=== PATIENT | male | born 1985 | race Caucasian/White ===

== ENCOUNTER 2016-12-12 12:41 | Emergency (ER) | payer OTHER ==
--- NOTE | 2016-12-12 13:41 | DIAGNOSTIC IMAGING REPORT ---
PROCEDURE: XR CHEST 2 VIEW INDICATION: COUGH TECHNIQUE: PA and lateral view. COMPARISON: None. FINDINGS: Small left basilar infiltrate versus summation artifact. Cardiovascular structures are normal. Bony thorax is unremarkable. IMPRESSION: 1. Small left basilar infiltrate versus summation artifact.
--- NOTE | 2016-12-12 13:52 | ED ORDER SUMMARY ---
..... Patient: ROSALIE CROCKETT OrderSheet [facility] VisitID: [id number] [address] [place] [address] 31y, M Registration Date/Time: 12/12/2016 ORDER SHEET Weight: 95.2 kg (stated) Allergies: No Known Drug Allergy GENERAL ORDERS: Chest 1V Urgent (12:54 12/12/2016 JBoardley R.N. per protocol) (Ack 12:57 PWeiler ER Tech1) (Cancelled: Other12:59 EKoroleva P.A.-C) Pulse oximeter (12:55 12/12/2016 JBoardley R.N. per protocol) (12:55 JBoardley R.N.) RT Evaluation Stat (12:55 12/12/2016 JBoardley R.N. per protocol) (Ack 12:56 PWeiler ER Tech1) (12:57 JBoardley R.N.) Chest 2V Urgent (12:59 12/12/2016 EKoroleva P.A.-C) (Ack 13:00 PWeiler ER Tech1) (13:27 JBoardley R.N.) MEDICATION ORDERS: Albuterol Neb Tx 2.5 mg (NOW) (13:00 12/12/2016 EKoroleva P.A.-C) (Ack 13:02 JBoardley R.N.) (13:11 JBoardley R.N.) IV FLUIDS: ORDER SHEET NOTES: [Electronically signed by Natalio Richards R.N. (14:10 12/12/2016)] [Electronically signed by Ameena Sky.A.-C (14:12 12/12/2016)] [Electronically locked/signed by Natalio Richards R.N. (14:10 12/12/2016)]
--- NOTE | 2016-12-12 13:52 | ED CLINICAL REPORT ---
Clinical Report - Physicians/Mid Levels [facility] [address] [place] [place] [address] 12/12/2016 12:44 [id number] Time Seen: 14:11 Dec 12 2016. Arrived- By private vehicle. Historian- patient. HISTORY OF PRESENT ILLNESS Chief Complaint: COUGH, FEVER, CHILLS and MUSCLE ACHES. This started 3 days and is still present. The patient has had a cough, a sore throat and chills. No chest pain, nasal congestion or sinus pressure. Additional history - The patient has had contact with a sick individual. (Patient presents with chills, nonproductive cough over the last 3 days. Reports some degree of shortness of breath. Denies chest pain. Denies history of sick contacts. Denies any history of PE DVT, recent foreign travel or hemoptysis.). REVIEW OF SYSTEMS No headache, vomiting, diarrhea or pedal edema. All systems otherwise negative, except as recorded above. SOCIAL HISTORY Never smoker. Alcohol use. No drug use. ADDITIONAL NOTES The nursing notes have been reviewed. PHYSICAL EXAM Vital Signs: 12/12/2016 12:50 BP: 138/71. HR: 99. RR: 20. O2 saturation: 98%. Temp: 98.2 F. Pain level now: 5/10. Appearance: Alert. Eyes: Eyes normal inspection. ENT: Ears normal. Pharynx normal. Neck: Normal inspection. CVS: Normal heart rate and rhythm. Heart sounds normal. Respiratory: No respiratory distress. Expiratory mild wheezes in the left lung base posteriorly. Breath sounds normal. No retractions or decreased breath sounds. Abdomen: Soft. Skin: Skin warm. Normal skin color. Neuro: Oriented X 3. LABS, X-RAYS, AND EKG Chest X-ray: (IMPRESSION: 1. Small left basilar infiltrate versus summation artifact. Electronically Final signed by:Román Ramos MD 12/12/2016 1:40:49 PM). PROGRESS AND PROCEDURES Course of Care: Patient here in the emergency department with signs of mild wheezing, good set and no retractions. Afebrile. Signs of early pneumonia in the emergency department. Patient is very stable. PERC/ WELLS NEG. 12/12/2016 14:06 BP: 132/72. HR: 92. RR: 16. O2 saturation: 98%. Temp: 98.3 F. Pain level now: 2/10. Patient is stable. Patient/family counseled. Differential Diagnosis: I considered viral bronchitis, laryngotracheobronchitis, viral pneumonia, bacterial bronchitis, bacterial pneumonia, mycoplasmal bronchitis, bronchospasm, allergic bronchospasm, irritant bronchospasm, pulmonary embolism and adverse drug reaction as a possible cause of cough in this patient. This is a partial list of diagnoses considered. Disposition: Discharged. Condition: good. CLINICAL IMPRESSION Pneumonia. Empiric antibiotics given- prescribed. INSTRUCTIONS Drink plenty of fluids. Prescription Medications: Ventolin HFA oral inhaler: inhale 1 puff every 6 hours for 1 week, as needed for wheezing. No refill. Substitution is not permissible. Robitussin A-C cough syrup take five (5) mL orally every 8 hours as needed for cough for 3 days. Dispense thirty (30) mL. No refill. Zithromax 500 mg tablets: take 2 orally initially, followed by 1 orally for the next 4 days. Total course 5 days. No refills. Substitution is permissible. Follow-up: Follow up with your doctor in three. (Electronically signed by Ameena Sky P.A.-C 12/12/2016 14:12)
--- NOTE | 2016-12-12 13:52 | ED CLINICAL REPORT ---
Clinical Report - Physicians/Mid Levels [facility] [address] [place] [place] [address] 12/12/2016 12:44 [id number] Time Seen: 14:11 Dec 12 2016. Arrived- By private vehicle. Historian- patient. HISTORY OF PRESENT ILLNESS Chief Complaint: COUGH, FEVER, CHILLS and MUSCLE ACHES. This started 3 days and is still present. The patient has had a cough, a sore throat and chills. No chest pain, nasal congestion or sinus pressure. Additional history - The patient has had contact with a sick individual. (Patient presents with chills, nonproductive cough over the last 3 days. Reports some degree of shortness of breath. Denies chest pain. Denies history of sick contacts. Denies any history of PE DVT, recent foreign travel or hemoptysis.). REVIEW OF SYSTEMS No headache, vomiting, diarrhea or pedal edema. All systems otherwise negative, except as recorded above. SOCIAL HISTORY Never smoker. Alcohol use. No drug use. ADDITIONAL NOTES The nursing notes have been reviewed. PHYSICAL EXAM Vital Signs: 12/12/2016 12:50 BP: 138/71. HR: 99. RR: 20. O2 saturation: 98%. Temp: 98.2 F. Pain level now: 5/10. Appearance: Alert. Eyes: Eyes normal inspection. ENT: Ears normal. Pharynx normal. Neck: Normal inspection. CVS: Normal heart rate and rhythm. Heart sounds normal. Respiratory: No respiratory distress. Expiratory mild wheezes in the left lung base posteriorly. Breath sounds normal. No retractions or decreased breath sounds. Abdomen: Soft. Skin: Skin warm. Normal skin color. Neuro: Oriented X 3. LABS, X-RAYS, AND EKG Chest X-ray: (IMPRESSION: 1. Small left basilar infiltrate versus summation artifact. Electronically Final signed by:Román Ramos MD 12/12/2016 1:40:49 PM). PROGRESS AND PROCEDURES Course of Care: Patient here in the emergency department with signs of mild wheezing, good set and no retractions. Afebrile. Signs of early pneumonia in the emergency department. Patient is very stable. PERC/ WELLS NEG. 12/12/2016 14:06 BP: 132/72. HR: 92. RR: 16. O2 saturation: 98%. Temp: 98.3 F. Pain level now: 2/10. Patient is stable. Patient/family counseled. Differential Diagnosis: I considered viral bronchitis, laryngotracheobronchitis, viral pneumonia, bacterial bronchitis, bacterial pneumonia, mycoplasmal bronchitis, bronchospasm, allergic bronchospasm, irritant bronchospasm, pulmonary embolism and adverse drug reaction as a possible cause of cough in this patient. This is a partial list of diagnoses considered. Disposition: Discharged. Condition: good. CLINICAL IMPRESSION Pneumonia. Empiric antibiotics given- prescribed. INSTRUCTIONS Drink plenty of fluids. Prescription Medications: Ventolin HFA oral inhaler: inhale 1 puff every 6 hours for 1 week, as needed for wheezing. No refill. Substitution is not permissible. Robitussin A-C cough syrup take five (5) mL orally every 8 hours as needed for cough for 3 days. Dispense thirty (30) mL. No refill. Zithromax 500 mg tablets: take 2 orally initially, followed by 1 orally for the next 4 days. Total course 5 days. No refills. Substitution is permissible. Follow-up: Follow up with your doctor in three. (Electronically signed by Ameena Sky P.A.-C 12/12/2016 14:12)
--- NOTE | 2016-12-12 13:52 | ED NURSING NOTES ---
Clinical Report - Nurses [facility] [address] [place] [address] 12/12/2016 12:44 Patient: ROSALIE CROCKETT TRIAGE Triage time 12:Dec 12 2016. Acuity: LEVEL 4. Chief Complaint: COUGH and FEVER. 12:51 12/12/16. 12:51 12/12/16. Alert. No acute distress. SEPSIS SCREEN: Sepsis Screen. Negative (no infection suspected/documented). --12:53 Natalio Richards R.N. 12:50 12/12/16. BP: 138/71. HR: 99. RR: 20. O2 saturation: 98% on room air. Temp: 98.2 F (oral). Pain level now: 5/10. --12:53 Natalio Richards R.N. Weight: 95.2 kg stated. Height/Length: 72 inches Per Patient. BMI: 28.5. --12:51 Natalio Richards R.N. Medications None. --12:52 Natalio Richards R.N. Medication/allergy information source: the patient. --12:53 Natalio Richards R.N. Allergies No Known Drug Allergy. --12:53 Natalio Richards R.N. History Arrived by private vehicle. Historian: patient. Unaccompanied. Primary physician (NONE). 12:51 12/12/16. ( Sunday AM). 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 SOCIAL HX: Never smoker. Regular alcohol use; consumes beer daily. No drug use. No infectious disease exposure. ABUSE ASSESSMENT: No report of abuse. FALL RISK ASSESSMENT: Fall risk assessment completed. No fall risk identified. NUTRITIONAL RISK ASSESSMENT: The nutritional risk assessment revealed no deficiencies. FUNCTIONAL ASSESSMENT: Functional assessment: no impairments noted. LEARNING NEEDS ASSESSMENT: The learning needs assessment revealed no barriers. SKIN INTEGRITY ASSESSMENT: Skin integrity risk assessment completed. No skin integrity risk identified. --12:53 Natalio Richards R.N. PAST MEDICAL HX: Immunizations: up-to-date. --12:53 Natalio Richards R.N. PROBLEMS: no known problems. ADDITIONAL SURGERIES: no known surgeries. Assessment 12:51 12/12/16. --12:53 Natalio Richards R.N. Interventions 12:51 12/12/16. 12:52 12/12/16. ID and allergy band on patient. To treatment room. --12:53 Natalio Richards R.N. PHYSICAL ASSESSMENT 12:53 12/12/16. Ambulatory to room. GENERAL / NEURO / PSYCH: Alert. Oriented X 4. RESPIRATORY: Mild respiratory distress. The patient can speak in full sentences. SKIN: Skin is warm and dry. --12:53 Natalio Richards R.N. 12:54 12/12/16. CVS: ( Denies chest pain). --12:54 Natalio Richards R.N. NURSING PROGRESS NOTES 12:54 12/12/16. The plan of care for this patient has been created. Pulse oximeter and NIBP monitor placed on patient; monitor alarms on. Patient gowned. Head of bed elevated. Two patient identifiers checked. Call light placed in reach. Side rails up x 2. Bed placed in lowest position. Brakes of bed on. --12:54 Natalio Richards R.N. 12:54 12/12/16. Patient ready for evaluation- chart flagged and notification provided. --12:54 Natalio Richards R.N. 13:12/12/16. ( RT at bedside). --13:07 Natalio Richards R.N. 13:12/12/2016 Albuterol Neb [place] 2.5 mg given. Given by the respiratory therapist. Allergies verified and confirmed 5 rights. --13:11 Natalio Richards R.N. 13:12/12/16. Reassessment after medication administered. Overall patient status- he states feels better. --13:12 Natalio Richards R.N. 13:11 12/12/16. BP: 124/67. HR: 94. RR: 18. O2 saturation: 97% on room air. --13:12 Natalio Richards R.N. 13:12/12/16. Patient waiting for diagnostic study to be done. --13:12 Natalio Richards R.N. 13:51 12/12/16. --13:51 Natalio Richards R.N. 13:51 12/12/16. HR: 99 (regular). RR: 18. O2 saturation: 96% on room air. --13:51 Natalio Richards R.N. DISPOSITION / DISCHARGE 14:12/12/16. Condition at departure: improved. The goals identified in the patient's plan of care were met. No learning barriers present. Discharge instructions provided and reviewed with the patient. Reviewed warnings. Reviewed medication(s). Treatments reviewed. Patient verbalized understanding. Written instructions provided in Martiniquais. The patient was discharged by the physician assistant accounting manager. He was discharged home. He left the Emergency Department ambulatory and via private vehicle. Patient driving. FALL RISK ASSESSMENT: Fall risk assessment completed. No fall risk identified. --14:06 Natalio Richards R.N. 14:12/12/16. BP: 132/72. HR: 92. RR: 16. O2 saturation: 98% on room air. Temp: 98.3 F (oral). Pain level now: 07/21. --14:06 Natalio Richards R.N. 14:12/12/16. Departure time: 14:Dec 12 2016. --14:07 Natalio Richards R.N. Locked/Released at 12/12/2016 14:10 by Natalio Richards R.N.
--- NOTE | 2016-12-12 13:52 | ED ORDER SUMMARY ---
..... Patient: ROSALIE CROCKETT OrderSheet [facility] VisitID: [id number] [address] [place] [address] 31y, M Registration Date/Time: 12/12/2016 ORDER SHEET Weight: 95.2 kg (stated) Allergies: No Known Drug Allergy GENERAL ORDERS: Chest 1V Urgent (12:54 12/12/2016 JBoardley R.N. per protocol) (Ack 12:57 PWeiler ER Tech1) (Cancelled: Other12:59 EKoroleva P.A.-C) Pulse oximeter (12:55 12/12/2016 JBoardley R.N. per protocol) (12:55 JBoardley R.N.) RT Evaluation Stat (12:55 12/12/2016 JBoardley R.N. per protocol) (Ack 12:56 PWeiler ER Tech1) (12:57 JBoardley R.N.) Chest 2V Urgent (12:59 12/12/2016 EKoroleva P.A.-C) (Ack 13:00 PWeiler ER Tech1) (13:27 JBoardley R.N.) MEDICATION ORDERS: Albuterol Neb Tx 2.5 mg (NOW) (13:00 12/12/2016 EKoroleva P.A.-C) (Ack 13:02 JBoardley R.N.) (13:11 JBoardley R.N.) IV FLUIDS: ORDER SHEET NOTES: [Electronically signed by Natlaio Richards R.N. (14:10 12/12/2016)] [Electronically signed by Ameena Sky.A.-C (14:12 12/12/2016)] [Electronically locked/signed by Natalio Richards R.N. (14:10 12/12/2016)]
--- NOTE | 2016-12-12 13:52 | ED NURSING NOTES ---
Clinical Report - Nurses [facility] [address] [place] [address] 12/12/2016 12:44 Patient: ROSALIE CROCKETT TRIAGE Triage time 12:Dec 12 2016. Acuity: LEVEL 4. Chief Complaint: COUGH and FEVER. 12:51 12/12/16. 12:51 12/12/16. Alert. No acute distress. SEPSIS SCREEN: Sepsis Screen. Negative (no infection suspected/documented). --12:53 Natalio Richards R.N. 12:50 12/12/16. BP: 138/71. HR: 99. RR: 20. O2 saturation: 98% on room air. Temp: 98.2 F (oral). Pain level now: 5/10. --12:53 Natalio Richards R.N. Weight: 95.2 kg stated. Height/Length: 72 inches Per Patient. BMI: 28.5. --12:51 Natalio Richards R.N. Medications None. --12:52 Natalio Richards R.N. Medication/allergy information source: the patient. --12:53 Natalio Richards R.N. Allergies No Known Drug Allergy. --12:53 Natalio Richards R.N. History Arrived by private vehicle. Historian: patient. Unaccompanied. Primary physician (NONE). 12:51 12/12/16. ( Sunday AM). 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 SOCIAL HX: Never smoker. Regular alcohol use; consumes beer daily. No drug use. No infectious disease exposure. ABUSE ASSESSMENT: No report of abuse. FALL RISK ASSESSMENT: Fall risk assessment completed. No fall risk identified. NUTRITIONAL RISK ASSESSMENT: The nutritional risk assessment revealed no deficiencies. FUNCTIONAL ASSESSMENT: Functional assessment: no impairments noted. LEARNING NEEDS ASSESSMENT: The learning needs assessment revealed no barriers. SKIN INTEGRITY ASSESSMENT: Skin integrity risk assessment completed. No skin integrity risk identified. --12:53 Natalio Richards R.N. PAST MEDICAL HX: Immunizations: up-to-date. --12:53 Natalio Richards R.N. PROBLEMS: no known problems. ADDITIONAL SURGERIES: no known surgeries. Assessment 12:51 12/12/16. --12:53 Natalio Richards R.N. Interventions 12:51 12/12/16. 12:52 12/12/16. ID and allergy band on patient. To treatment room. --12:53 Natalio Richards R.N. PHYSICAL ASSESSMENT 12:53 12/12/16. Ambulatory to room. GENERAL / NEURO / PSYCH: Alert. Oriented X 4. RESPIRATORY: Mild respiratory distress. The patient can speak in full sentences. SKIN: Skin is warm and dry. --12:53 Natalio Richards R.N. 12:54 12/12/16. CVS: ( Denies chest pain). --12:54 Natalio Richards R.N. NURSING PROGRESS NOTES 12:54 12/12/16. The plan of care for this patient has been created. Pulse oximeter and NIBP monitor placed on patient; monitor alarms on. Patient gowned. Head of bed elevated. Two patient identifiers checked. Call light placed in reach. Side rails up x 2. Bed placed in lowest position. Brakes of bed on. --12:54 Natalio Richards R.N. 12:54 12/12/16. Patient ready for evaluation- chart flagged and notification provided. --12:54 Natalio Richards R.N. 13:12/12/16. ( RT at bedside). --13:07 Natalio Richards R.N. 13:12/12/2016 Albuterol Neb TX 2.5 mg given. Given by the respiratory therapist. Allergies verified and confirmed 5 rights. --13:11 Natalio Richards R.N. 13:12/12/16. Reassessment after medication administered. Overall patient status- he states feels better. --13:12 Natalio Richards R.N. 13:11 12/12/16. BP: 124/67. HR: 94. RR: 18. O2 saturation: 97% on room air. --13:12 Natalio Richards R.N. 13:12/12/16. Patient waiting for diagnostic study to be done. --13:12 Natalio Richards R.N. 13:51 12/12/16. --13:51 Natalio Richards R.N. 13:51 12/12/16. HR: 99 (regular). RR: 18. O2 saturation: 96% on room air. --13:51 Natalio Richards R.N. DISPOSITION / DISCHARGE 14:12/12/16. Condition at departure: improved. The goals identified in the patient's plan of care were met. No learning barriers present. Discharge instructions provided and reviewed with the patient. Reviewed warnings. Reviewed medication(s). Treatments reviewed. Patient verbalized understanding. Written instructions provided in Northern Irish. The patient was discharged by the physician physician assistant primary care. He was discharged home. He left the Emergency Department ambulatory and via private vehicle. Patient driving. FALL RISK ASSESSMENT: Fall risk assessment completed. No fall risk identified. --14:06 Natalio Richards R.N. 14:12/12/16. BP: 132/72. HR: 92. RR: 16. O2 saturation: 98% on room air. Temp: 98.3 F (oral). Pain level now: 07/21. --14:06 Natalio Richards R.N. 14:12/12/16. Departure time: 14:Dec 12 2016. --14:07 Natalio Richards R.N. Locked/Released at 12/12/2016 14:10 by Natalio Richards R.N.
--- NOTE | 2016-12-12 14:13 | ED DISCHARGE INSTRUCTIONS ---
Patient: ROSALIE CROCKETT General Instructions Located Within [facility] VisitID: [id number] [place] [address] 31y, M Registration Date/Time: 12/12/2016 Pneumonia. Empiric antibiotics given- prescribed. INSTRUCTIONS Drink plenty of fluids. Prescription Medications: Ventolin HFA oral inhaler: inhale 1 puff every 6 hours for 1 week, as needed for wheezing. No refill. Substitution is not permissible. Robitussin A-C cough syrup take five (5) mL orally every 8 hours as needed for cough for 3 days. Dispense thirty (30) mL. No refill. Zithromax 500 mg tablets: take 2 orally initially, followed by 1 orally for the next 4 days. Total course 5 days. No refills. Substitution is permissible. Follow-up: Follow up with your doctor in three. ADDITIONAL INFORMATION Pneumonia (Adult) Pneumonia is an infection deep within the lung, in the small air sacs (alveoli). It may be due to a virus or bacteria and is usually treated with an antibiotic. Severe cases require treatment in the hospital. Milder cases can be treated at home. Symptoms usually start to improve during the first2 days of treatment. Home Care: Rest at home for the first 23 days or until you feel stronger. When resuming activity, dont let yourself become overly tired. Avoid exposure to cigarette smoke (yours or others). You may use acetaminophen (Tylenol) or ibuprofen (Motrin, Advil) to control fever or pain, unless another medicine was prescribed. [NOTE: If you have chronic liver or kidney disease or ever had a stomach ulcer or GI bleeding, talk with your doctor before using these medicines.] (Aspirin should never be used in anyone under 18 years of age who is ill with a fever. It may cause severe liver damage.) Your appetite may be poor so a light diet is fine. Keep well hydrated by drinking 68 glasses of fluids per day (water, sport drinks such as Gatorade, sodas without caffeine, juices, tea, soup, etc.). This will help loosen secretions in the lung, making it easier for you to cough up the phlegm (sputum). If you also have heart or kidney disease, check with your doctor before you drink extra amounts of fluids. Finish all antibiotic medicine prescribed, even if you are feeling better after a few days. Follow Up with your doctor in the next 23 days (or as advised) to be sure you are responding properly to the medicine. [NOTE: If you are age 65 or older, or if you have chronic lung disease (asthma, emphysema or COPD), we recommendthe pneumococcal vaccination and a yearlyinfluenzavaccination(flu-shot) every . Ask your doctor about this.] Get Prompt Medical Attention if any of the following occur: Not getting better within the first 48 hours of treatment Increasing shortness of breath or rapid breathing (over 25 breaths/minute) Coughing up blood or increasing chest pain with breathing Fever of 100.4F (38C) oral or higher, not better with fever medication Increasing weakness, dizziness or fainting Increasing thirst or dry mouth Sinus pain, headache or a stiff neck Chest pain not caused by coughing Albuterol Sulfate Pressurized inhalation, suspension What is this medicine? ALBUTEROL (al BYOO ter ole) is a bronchodilator. It helps open up the airways in your lungs to make it easier to breathe. This medicine is used to treat and to prevent bronchospasm. How should I use this medicine? This medicine is for inhalation through the mouth. Follow the directions on your prescription label. Take your medicine at regular intervals. Do not use more often than directed. Make sure that you are using your inhaler correctly. Ask you doctor or health care provider if you have any questions. Talk to your dry cleaning attendant regarding the use of this medicine in children. Special care may be needed. What side effects may I notice from receiving this medicine? Side effects that you should report to your doctor or health child care associate teacher as soon as possible: allergic reactions like skin rash, itching or hives, swelling of the face, lips, or tongue breathing problems chest pain feeling faint or lightheaded, falls high blood pressure irregular heartbeat fever muscle cramps or weakness pain, tingling, numbness in the hands or feet vomiting Side effects that usually do not require medical attention (report to your doctor or health child care associate teacher if they continue or are bothersome): cough difficulty sleeping headache nervousness or trembling stomach upset stuffy or runny nose throat irritation unusual taste What may interact with this medicine? anti-infectives like chloroquine and pentamidine caffeine cisapride diuretics medicines for colds medicines for depression or for emotional or psychotic conditions medicines for weight loss including some herbal products methadone some antibiotics like clarithromycin, erythromycin, levofloxacin, and linezolid some heart medicines steroid hormones like dexamethasone, cortisone, hydrocortisone theophylline thyroid hormones What if I miss a dose? If you miss a dose, use it as soon as you can. If it is almost time for your next dose, use only that dose. Do not use double or extra doses. Where should I keep my medicine? Keep out of the reach of children. Store at room temperature between 15 and 30 degrees C (59 and 86 degrees F). The contents are under pressure and may burst when exposed to heat or flame. Do not freeze. This medicine does not work as well if it is too cold. Throw away any unused medicine after the expiration date. Inhalers need to be thrown away after the labeled number of puffs have been used or by the expiration date; whichever comes first. Ventolin HFA should be thrown away 12 months after removing from foil pouch. Check the instructions that come with your medicine. What should I tell my health care provider before I take this medicine? They need to know if you have any of the following conditions: diabetes heart disease or irregular heartbeat high blood pressure pheochromocytoma seizures thyroid disease an unusual or allergic reaction to albuterol, levalbuterol, sulfites, other medicines, foods, dyes, or preservatives or trying to get breast-feeding What should I watch for while using this medicine? Tell your doctor or health child care associate teacher if your symptoms do not improve. Do not use extra albuterol. If your asthma or bronchitis gets worse while you are using this medicine, call your doctor right away. If your mouth gets dry try chewing sugarless gum or sucking hard candy. Drink water as directed. Azithromycin Oral tablet What is this medicine? AZITHROMYCIN (az ith ksenia MYE sin) is a macrolide antibiotic. It is used to treat or prevent certain kinds of bacterial infections. It will not work for colds, flu, or other viral infections. How should I use this medicine? Take this medicine by mouth with a full glass of water. Follow the directions on the prescription label. The tablets can be taken with food or on an empty stomach. If the medicine upsets your stomach, take it with food. Take your medicine at regular intervals. Do not take your medicine more often than directed. Take all of your medicine as directed even if you think your are better. Do not skip doses or stop your medicine early. Talk to your dry cleaning attendant regarding the use of this medicine in children. Special care may be needed. What side effects may I notice from receiving this medicine? Side effects that you should report to your doctor or health child care associate teacher as soon as possible: allergic reactions like skin rash, itching or hives, swelling of the face, lips, or tongue confusion, nightmares or hallucinations dark urine difficulty breathing hearing loss irregular heartbeat or chest pain pain or difficulty passing urine redness, blistering, peeling or loosening of the skin, including inside the mouth white patches or sores in the mouth yellowing of the eyes or skin Side effects that usually do not require medical attention (report to your doctor or health child care associate teacher if they continue or are bothersome): diarrhea dizziness, drowsiness headache stomach upset or vomiting tooth discoloration vaginal irritation What may interact with this medicine? Do not take this medicine with any of the following medications: lincomycin This medicine may also interact with the following medications: amiodarone antacids cyclosporine digoxin magnesium nelfinavir phenytoin warfarin What if I miss a dose? If you miss a dose, take it as soon as you can. If it is almost time for your next dose, take only that dose. Do not take double or extra doses. Where should I keep my medicine? Keep out of the reach of children. Store at room temperature between 15 and 30 degrees C (59 and 86 degrees F). Throw away any unused medicine after the expiration date. What should I tell my health care provider before I take this medicine? They need to know if you have any of these conditions: kidney disease liver disease irregular heartbeat or heart disease an unusual or allergic reaction to azithromycin, erythromycin, other macrolide antibiotics, foods, dyes, or preservatives or trying to get breast-feeding What should I watch for while using this medicine? Tell your doctor or health child care associate teacher if your symptoms do not improve. Do not treat diarrhea with over the counter products. Contact your doctor if you have diarrhea that lasts more than 2 days or if it is severe and watery. This medicine can make you more sensitive to the sun. Keep out of the sun. If you cannot avoid being in the sun, wear protective clothing and use sunscreen. Do not use sun lamps or tanning beds/booths. You have been given the following additional information: Pneumonia (Adult) Albuterol Sulfate Pressurized inhalation, suspension Azithromycin Oral tablet (Electronically signed by Ameena Sky P.A.-C 12/12/2016 14:12)
--- NOTE | 2016-12-12 14:13 | ED MAR SUMMARY ---
..... Medication Administration Record [facility] [address] [place] [address] Patient: ROSALIE CROCKETT Visit ID: [id number] 31y, M Weight: 95.2 kg Height/Length: 72 in BMI: 28.5 ALLERGIES: No Known Drug Allergy Given 13:11 12/12/2016 Natalio Richards R.N. Medication Administered: ALBUTEROL [NEB TX], Dose: 2.5 mg Neb TX. Medication Ordered: Albuterol Neb Tx 2.5 mg (NOW).
--- NOTE | 2016-12-12 14:13 | ED MED RECONCILIATION SUMMARY ---
Patient: ROSALIE CROCKETT Medication Reconciliation Report [facility] VisitID: [id number] [place] [address] 31y, M Registration Date/Time: 12/12/2016 Weight: 95.2 kg Height/Length: 72 in. BMI: 28.5 ALLERGIES: No Known Drug Allergy The patient's Home Medications are listed below: NONE. The source(s) of the original Home Medication information: patient The following Medications were given to the patient in the Emergency Department: Albuterol [Neb Tx] Neb TX 2.5 mg, administered: 12/12/2016 1:11:00 PM The following Medications were prescribed to the patient: Ventolin HFA oral inhaler: inhale 1 puff every 6 hours for 1 week, as needed for wheezing. No refill. Substitution is not permissible. -- Ameena Sky, P.A.-C Robitussin A-C cough syrup take five (5) mL orally every 8 hours as needed for cough for 3 days. Dispense thirty (30) mL. No refill. -- Ameena Sky, P.A.-C Zithromax 500 mg tablets: take 2 orally initially, followed by 1 orally for the next 4 days. Total course 5 days. No refills. Substitution is permissible. -- Ameena Sky, P.A.-C
--- NOTE | 2016-12-12 14:13 | ED MED RECONCILIATION SUMMARY ---
Patient: ROSALIE CROCKETT Medication Reconciliation Report [facility] VisitID: [id number] [place] [address] 31y, M Registration Date/Time: 12/12/2016 Weight: 95.2 kg Height/Length: 72 in. BMI: 28.5 ALLERGIES: No Known Drug Allergy The patient's Home Medications are listed below: NONE. The source(s) of the original Home Medication information: patient The following Medications were given to the patient in the Emergency Department: Albuterol [Neb Tx] Neb TX 2.5 mg, administered: 12/12/2016 1:11:00 PM The following Medications were prescribed to the patient: Ventolin HFA oral inhaler: inhale 1 puff every 6 hours for 1 week, as needed for wheezing. No refill. Substitution is not permissible. -- Ameena Sky, P.A.-C Robitussin A-C cough syrup take five (5) mL orally every 8 hours as needed for cough for 3 days. Dispense thirty (30) mL. No refill. -- Ameena Sky, P.A.-C Zithromax 500 mg tablets: take 2 orally initially, followed by 1 orally for the next 4 days. Total course 5 days. No refills. Substitution is permissible. -- Ameena Sky, P.A.-C
--- NOTE | 2016-12-12 14:13 | ED MAR SUMMARY ---
..... Medication Administration Record [facility] [address] [place] [address] Patient: ROSALIE CROCKETT Visit ID: [id number] 31y, M Weight: 95.2 kg Height/Length: 72 in BMI: 28.5 ALLERGIES: No Known Drug Allergy Given 13:11 12/12/2016 Natalio Richards R.N. Medication Administered: ALBUTEROL [NEB TX], Dose: 2.5 mg Neb TX. Medication Ordered: Albuterol Neb Tx 2.5 mg (NOW).
== END 2016-12-12 14:06 | disposition home or self-care (01) ==
LOC: ED SRH 12:41
DX: J18.9 Pneumonia, unspecified organism (principal)